=== PATIENT | male | born 1940 | race Caucasian/White ===

== ENCOUNTER 2018-02-15 11:41 | Outpatient (CLI) | payer OTHER | END 2018-02-15 11:46 | disposition home or self-care (01) | LOC: LAB 11:41 | DX: R97.20 Elevated prostate specific antigen [PSA] (principal) ==

== ENCOUNTER 2018-03-02 08:29 | Outpatient (CLI) | payer OTHER | END 2018-03-02 08:45 | disposition home or self-care (01) | LOC: SONOGRAMA 08:29 | DX: R97.20 Elevated prostate specific antigen [PSA] (principal) ==

== ENCOUNTER 2018-03-21 09:02 | Outpatient (CLI) | payer OTHER | END 2018-03-21 10:00 | disposition home or self-care (01) | LOC: NUCLEAR 09:02 | DX: C61 Malignant neoplasm of prostate (principal) | CPT/HCPCS: 78306; 78320; A9503 ==

== ENCOUNTER 2018-03-26 10:15 | Outpatient (CLI) | payer OTHER | END 2018-03-26 11:25 | disposition home or self-care (01) | LOC: TOM 10:15 | DX: C61 Malignant neoplasm of prostate (principal) ==

== ENCOUNTER 2018-04-24 09:20 | Outpatient (CLI) | payer OTHER | END 2018-04-24 09:28 | disposition home or self-care (01) | LOC: LAB 09:20 | DX: C61 Malignant neoplasm of prostate (principal); D68.8 Other specified coagulation defects ==

== ENCOUNTER 2018-04-24 09:40 | Outpatient (CLI) | payer OTHER | END 2018-04-24 09:45 | disposition home or self-care (01) | LOC: RAD 09:40 | DX: C61 Malignant neoplasm of prostate (principal) ==

== ENCOUNTER 2018-04-26 12:20 | Inpatient (IN) | payer OTHER ==
[~2018-04-26] VITALS: Ht 180.3 cm; Wt 78.0 kg
[2018-05-07] MEDS ORDERED: CLONAZEPAM1 MG PO (09:39)
[2018-05-07] MEDS ORDERED: DONEPEZIL HCL5 MG PO (09:40)
[2018-05-07] MEDS ORDERED: MIRTAZAPINE15 M1 PO (09:40)
[2018-05-12] MEDS ORDERED: CLONAZEPAM1 GM (17:22)
[2018-05-12] MEDS ORDERED: REMERON15 M1 (17:23)
[2018-05-12] MEDS ORDERED: ARICEPT5 MG (17:23)
== END 2018-05-11 10:06 | disposition home or self-care (01) | DRG 708 ==
LOC: SURG 05-09 05:45 → O/R 05-09 05:45 → SURH 05-09 07:00 → SURG 05-09 14:13
PROVIDERS: Urology
PROC: 07TC0ZZ Resection of Pelvis Lymphatic, Open Approach (ICD-10-PCS; 2018-05-09)
PROC: 0VT30ZZ Resection of Bilateral Seminal Vesicles, Open Approach (ICD-10-PCS; 2018-05-09)
PROC: 0VT00ZZ Resection of Prostate, Open Approach (ICD-10-PCS; principal; 2018-05-09 07:00)
DX: C61 Malignant neoplasm of prostate (principal); G30.8 Other Alzheimer's disease; F02.80 Dementia in other diseases classified elsewhere, unspecified severity, without behavioral disturbance, psychotic disturbance, mood disturbance, and anxiety

== ENCOUNTER 2018-05-12 17:11 | Emergency (ER) | payer OTHER ==
[~2018-05-12] VITALS: Ht 180.3 cm; Wt 72.6 kg
[~2018-05-12 17:11] MED LIST: CLONAZEPAM1 MG PO; DONEPEZIL HCL5 MG PO; MIRTAZAPINE15 M1 PO
[2018-05-12] MEDS ORDERED: CLONAZEPAM1 GM (17:22)
[2018-05-12] MEDS ORDERED: REMERON15 M1 (17:23)
[2018-05-12] MEDS ORDERED: ARICEPT5 MG (17:23)
== END 2018-05-12 21:32 | disposition home or self-care (01) ==
LOC: ER 17:11
DX: G89.18 Other acute postprocedural pain (principal); N48.89 Other specified disorders of penis; R31.0 Gross hematuria

== ENCOUNTER 2018-05-22 12:02 | Outpatient (CLI) | payer OTHER ==
[~2018-05-22 12:02] MED LIST changes: +ARICEPT5 MG; +CLONAZEPAM1 GM; +REMERON15 M1
== END 2018-05-22 12:06 | disposition home or self-care (01) ==
LOC: RAD 12:02
DX: R06.6 Hiccough (principal)

== ENCOUNTER 2018-05-24 11:42 | Outpatient (CLI) | payer OTHER | END 2018-05-24 11:47 | disposition home or self-care (01) | LOC: LAB 11:42 | DX: N30.00 Acute cystitis without hematuria (principal) ==

== ENCOUNTER 2018-06-28 13:51 | Outpatient (CLI) | payer OTHER | END 2018-06-28 14:00 | disposition home or self-care (01) | LOC: LAB 13:51 | DX: C61 Malignant neoplasm of prostate (principal) ==

== ENCOUNTER 2018-08-20 14:59 | Outpatient (CLI) | payer OTHER | END 2018-08-20 15:42 | disposition home or self-care (01) | LOC: NUCLEAR 14:59 | DX: I87.2 Venous insufficiency (chronic) (peripheral) (principal) ==

== ENCOUNTER 2018-08-21 08:45 | Outpatient (CLI) | payer OTHER | END 2018-08-21 18:52 | disposition home or self-care (01) | LOC: LAB 08:45 | DX: I10 Essential (primary) hypertension (principal); E11.9 Type 2 diabetes mellitus without complications; N40.0 Benign prostatic hyperplasia without lower urinary tract symptoms ==

== ENCOUNTER 2018-09-11 08:19 | Outpatient (CLI) | payer OTHER | END 2018-09-11 08:34 | disposition home or self-care (01) | LOC: LAB 08:19 | DX: C61 Malignant neoplasm of prostate (principal); N39.0 Urinary tract infection, site not specified ==

== ENCOUNTER 2018-10-16 08:14 | Outpatient (CLI) | payer OTHER | END 2018-10-16 08:23 | disposition home or self-care (01) | LOC: LAB 08:14 | DX: I10 Essential (primary) hypertension (principal); E11.9 Type 2 diabetes mellitus without complications ==

== ENCOUNTER 2018-12-20 08:29 | Outpatient (CLI) | payer OTHER | END 2018-12-20 08:50 | disposition home or self-care (01) | LOC: LAB 08:29 | DX: C61 Malignant neoplasm of prostate (principal); I10 Essential (primary) hypertension; E11.9 Type 2 diabetes mellitus without complications; E03.8 Other specified hypothyroidism; E78.2 Mixed hyperlipidemia; Z12.11 Encounter for screening for malignant neoplasm of colon ==

== ENCOUNTER 2019-04-03 08:01 | Outpatient (CLI) | payer OTHER | END 2019-04-03 08:08 | disposition home or self-care (01) | LOC: LAB 08:01 | DX: E03.8 Other specified hypothyroidism (principal); I10 Essential (primary) hypertension; E11.9 Type 2 diabetes mellitus without complications; E78.2 Mixed hyperlipidemia ==

== ENCOUNTER 2019-04-08 08:41 | Outpatient (CLI) | payer OTHER | END 2019-04-08 08:53 | disposition home or self-care (01) | LOC: TOM 08:41 | DX: K40.90 Unilateral inguinal hernia, without obstruction or gangrene, not specified as recurrent (principal) ==

== ENCOUNTER → 2019-08-29 11:21 | Outpatient (CLI) | payer OTHER | END | disposition home or self-care (01) | LOC: LAB 11:21 | DX: C61 Malignant neoplasm of prostate (principal) ==

== ENCOUNTER → 2020-02-25 07:06 | Outpatient (CLI) | payer OTHER | END | disposition home or self-care (01) | LOC: LAB 07:06 | PROVIDERS: ATTEND Urology | DX: C61 Malignant neoplasm of prostate (principal) ==

== ENCOUNTER 2020-06-08 07:17 | Outpatient (CLI) | payer OTHER | END 2020-06-08 07:23 | disposition home or self-care (01) | LOC: LAB 07:17 | PROVIDERS: ATTEND Radiology Radiation Oncology | DX: C61 Malignant neoplasm of prostate (principal) ==

== ENCOUNTER 2020-10-21 08:47 | Outpatient (CLI) | payer OTHER | END 2020-10-21 14:19 | disposition home or self-care (01) | LOC: LAB 08:47 | PROVIDERS: ATTEND Urology | DX: C61 Malignant neoplasm of prostate (principal) ==

== ENCOUNTER 2020-10-27 07:13 | Outpatient (CLI) | payer OTHER | END 2020-10-27 07:24 | disposition home or self-care (01) | LOC: LAB 07:13 | PROVIDERS: ATTEND Internal Medicine Cardiovascular Disease | DX: E03.8 Other specified hypothyroidism (principal); I11.9 Hypertensive heart disease without heart failure; E78.2 Mixed hyperlipidemia; I50.89 Other heart failure ==

== ENCOUNTER 2020-10-27 10:28 | Outpatient (CLI) | payer OTHER | END 2020-10-27 11:20 | disposition home or self-care (01) | LOC: NUCLEAR 10:28 | PROVIDERS: ATTEND Internal Medicine Cardiovascular Disease | DX: M79.662 Pain in left lower leg (principal); M79.661 Pain in right lower leg ==

== ENCOUNTER 2021-01-26 07:15 | Outpatient (CLI) | payer OTHER | END 2021-01-26 07:16 | disposition home or self-care (01) | LOC: NUCLEAR 07:15 | PROVIDERS: ATTEND Internal Medicine Cardiovascular Disease | DX: R06.09 Other forms of dyspnea (principal) | CPT/HCPCS: 78452; 93017; A9500; J0153 ==

== ENCOUNTER → 2021-04-27 09:36 | Outpatient (CLI) | payer OTHER | END | disposition home or self-care (01) | LOC: LAB 09:36 | PROVIDERS: ATTEND Urology | DX: C61 Malignant neoplasm of prostate (principal) ==

== ENCOUNTER 2021-10-28 11:14 | Outpatient (CLI) | payer OTHER | END 2021-10-28 11:21 | disposition home or self-care (01) | LOC: LAB 11:14 | PROVIDERS: ATTEND Radiology Diagnostic Radiology | DX: C61 Malignant neoplasm of prostate (principal) ==

== ENCOUNTER 2021-11-12 07:50 | Outpatient (CLI) | payer OTHER | END 2021-11-12 07:52 | disposition home or self-care (01) | LOC: NUCLEAR 07:50 | DX: C61 Malignant neoplasm of prostate (principal) | CPT/HCPCS: 78802; A9503 ==

== ENCOUNTER 2022-03-12 11:00 | Outpatient (CLI) | payer OTHER | END 2022-03-12 11:01 | disposition home or self-care (01) | LOC: LAB 11:00 | PROVIDERS: ATTEND Urology | DX: C61 Malignant neoplasm of prostate (principal) ==

== ENCOUNTER → 2022-10-21 09:26 | Outpatient (CLI) | payer OTHER | END | disposition home or self-care (01) | LOC: LAB 09:26 | PROVIDERS: ATTEND Urology | DX: C61 Malignant neoplasm of prostate (principal) ==